=== PATIENT | male | born 1940 | race Caucasian/White ===

== ENCOUNTER 2023-07-16 07:52 | Day surgery (SDC) | payer MEDICARE, OTHER, SELFPAY ==
[2023-07-16] MEDS: TETRACAINE 0.5% OPHTH 1 DROP EYE-RIGHT ×2 (08:20→08:34)
--- NOTE | 2023-07-16 08:23 | SUR.PREOP ---
The eye drops brought by the patient (Ketorolac and Prednisolone) are examined and I have determined they are labeled by the patient's pharmacy for this patient as prescribed by the surgeon. The bottles are intact, recently obtained and appear to be correct.
[2023-07-16] MEDS: KETOROLAC OPHTH 0.5% 1 DROP EYE-RIGHT ×3 (08:33→08:42)
[2023-07-16] MEDS: SODIUM CHLORIDE 0.9 % (FLUSH) 10 ML SYRINGE IVF (08:45)
[2023-07-16 08:46] VITALS: BP 150/76; PULSE 67; RESP 16; TEMP 36.7; O2SAT 96; BMI 28.8
[2023-07-16] MEDS: BALANCED SALT IRRIG SOLN 15 ML EYE-RIGHT (09:24)
[2023-07-16] MEDS: TETRACAINE 0.5% OPHTH 2 DROP EYE-RIGHT (09:24)
--- NOTE | 2023-07-16 09:49 | P.ANES_ITS ---
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
[2023-07-16 09:50] VITALS: BP 140/70; PULSE 61; RESP 16; TEMP 36.7; O2SAT 99
--- NOTE | 2023-07-16 10:40 | W.ANESCHARGE ---
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
--- NOTE | 2023-07-16 12:59 | P.OPTPRC_ITS ---
Procedure Note Date of procedure: 07/16/23 Will [facility] bill your pro fee for this procedure?: Yes Procedure Description: SURGEON: Chantal Major MD PREOPERATIVE DIAGNOSIS: Nuclear sclerotic cataract, right eye. POSTOPERATIVE DIAGNOSIS: Nuclear sclerotic cataract, right eye. NAME OF OPERATION: Phacoemulsification of cataract with posterior chamber intraocular lens implantation in the right eye. ANESTHESIA: Topical. ESTIMATED BLOOD LOSS: Less than 2 cc. COMPLICATIONS: None. PATHOLOGY SPECIMEN: None. INDICATIONS: See consult note for details. The risks, benefits and alternatives of the procedure were explained to the patient, who elected to proceed and signed informed consent to do so. Of note, the patient was treated with atropine for 2 days preoperatively which released the posterior synechiae. The pupil was well dilated. Therefore, no pupilloplasty or synechiolysis was needed. PROCEDURE: The patient was brought to the pre-holding area where the right eye was identified as the operative eye. I placed my initials above this eye. The patient received eye drops consisting of 0.5% tetracaine, 1% tropicamide, 10% phenylephrine, and 0.5% ketorolac. The patient was then brought to the operating room where the right eye was again identified as the operative eye. The eye was prepped with Betadine and draped in the usual sterile ophthalmic fashion. A #15 super-sharp blade was used to create a paracentesis site. 1% non-preserved intracameral lidocaine was injected into the anterior chamber. Endocoat was injected into the anterior chamber. A 2.4 mm keratome was used to create a three-plane self-sealing incision 1 mm anterior to the temporal limbus. A cystotome was used to create an anterior capsular leaflet. The Utrata forceps were used to extend this to form a continuous curvilinear capsulorrhexis. Hydrod issection was performed. The cataract was removed with phacoemulsification using the [id number] technique. The irrigation and aspiration tip was used to remove the remaining cortex. Healon was injected into the capsular bag. An CATALINA ZCB00 intraocular lens of 19.5 diopters was injected into the capsular bag. The irrigation and aspiration tip was used to remove the remaining viscoelastic. Bal anced salt solution on a cannula was used to hydrate the wound, and the wound was found to be watertight. Miostat was injected into the anterior chamber. The pupil was noted to be round. DISPOSITION: The patient was taken to the recovery room and discharged to home in stable condition. The patient was instructed to call me or go to the emergency department with any sudden change, including dramatic loss of vision, severe pain in the eye or eyebrow region, nausea, or vomiting. The patient will follow up in the clinic tomorrow morning.
== END 2023-07-16 10:23 | disposition home or self-care (01) ==
PROVIDERS: PCP Family Medicine; Visit Provider Ophthalmology
PROC: (CPT 66984; principal; 2023-07-16 08:15)
DX: H25.11 Age-related nuclear cataract, right eye (principal)
CPT/HCPCS: 66984; 00142; 99100; A9270; J2250; J2405; J3010; V2632

== ENCOUNTER 2023-07-30 07:36 | Day surgery (SDC) | payer MEDICARE, OTHER, SELFPAY ==
[2023-07-30] MEDS: KETOROLAC OPHTH 0.5% 1 DROP EYE-LEFT ×3 (08:00→08:10)
[2023-07-30] MEDS: TETRACAINE 0.5% OPHTH 1 DROP EYE-LEFT ×2 (08:00→08:05)
[2023-07-30 08:04] VITALS: BP 158/84; PULSE 83; RESP 18; TEMP 36.2; O2SAT 97
[2023-07-30 08:13] VITALS: BMI 27.9
[2023-07-30] MEDS: SODIUM CHLORIDE 0.9 % (FLUSH) 10 ML SYRINGE IVF (08:16)
[2023-07-30] MEDS: TETRACAINE 0.5% OPHTH 2 DROP EYE-LEFT (09:27)
[2023-07-30] MEDS: BALANCED SALT IRRIG SOLN 15 ML EYE-LEFT (09:31)
--- NOTE | 2023-07-30 09:57 | P.ANES_ITS ---
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
[2023-07-30 10:00] VITALS: BP 153/77; PULSE 62; RESP 16; TEMP 36.3; O2SAT 96
--- NOTE | 2023-07-30 10:02 | W.PM.OPTPROC ---
Procedure Note Date of procedure: 07/30/23 Will [facility] bill your pro fee for this procedure?: Yes Procedure Description: SURGEON: Chantal Major MD PREOPERATIVE DIAGNOSIS: Nuclear sclerotic cataract, left eye. POSTOPERATIVE DIAGNOSIS: Nuclear sclerotic cataract, left eye. NAME OF OPERATION: Phacoemulsification of cataract with posterior chamber intraocular lens implantation in the left eye. ANESTHESIA: Topical. ESTIMATED BLOOD LOSS: Less than 2 cc. COMPLICATIONS: None. PATHOLOGY SPECIMEN: None. INDICATIONS: See consult note for details. The risks, benefits and alternatives of the procedure were explained to the patient, who elected to proceed and signed informed consent to do so. PROCEDURE: The patient was brought to the pre-holding area where the left eye was identified as the operative eye. I placed my initials above this eye. The patient received eye drops consisting of 0.5% tetracaine, 1% tropicamide, 10% phenylephrine, and 0.5% ketorolac. The patient was then brought to the operating room where the left eye was again identified as the operative eye. The eye was prepped with Betadine and draped in the usual sterile ophthalmic fashion. A #15 super-sharp blade was used to create a paracentesis site. 1% non-preserved intracameral lidocaine was injected into the anterior chamber. Endocoat was injected into the anterior chamber. A 2.4 mm keratome was used to create a three-plane self-sealing incision 1 mm anterior to the temporal limbus. A cystotome was used to create an anterior capsular leaflet. The Utrata forceps were used to extend this to form a continuous curvilinear capsulorrhexis. Hydrodissection was performed. The cataract was removed with phacoemulsification using the [id number] technique. The irrigation and aspiration tip was used to remove the remaining cortex. Healon was injected into the capsular bag. An CATALINA ZCB00 intraocular lens of 19.0 diopters was injected into the capsular bag. The irrigation and aspiration tip was used to remove the remaining viscoelastic. Balanced salt solution on a cannula was used to hydrate the wound, and the wound was found to be watertight. The pupil was noted to be round. DISPOSITION: The patient was taken to the recovery room and discharged to home in stable condition. The patient was instructed to call me or go to the emergency department with any sudden change, including dramatic loss of vision, severe pain in the eye or eyebrow region, nausea, or vomiting. The patient will follow up in the clinic tomorrow morning.
--- NOTE | 2023-07-30 10:09 | SUR.PREOP ---
The eye drops brought by the patient (Ketorolac and Prednisolone) are examined and I have determined they are labeled by the patient's pharmacy for this patient as prescribed by the surgeon. The bottles are intact, recently obtained and appear to be correct.brina
== END 2023-07-30 10:33 | disposition home or self-care (01) ==
LOC: OR 07:37
PROVIDERS: PCP Family Medicine; Visit Provider Ophthalmology
PROC: (CPT 66984; principal; 2023-07-30 08:15)
DX: H25.12 Age-related nuclear cataract, left eye (principal)
CPT/HCPCS: 66984; 00142; 99100; A9270; J2250; J3010; V2632

== ENCOUNTER 2024-03-05 08:25 | Emergency (ER) | payer MEDICARE, OTHER, SELFPAY ==
[2024-03-05] VITALS (22 sets, daily range): BP systolic 131–151; BP diastolic 64–81; PULSE 66–89; RESP 18; TEMP 36.7; O2SAT 93–99; BMI 27.3
--- NOTE | 2024-03-05 08:45 | ED.GENADULT ---
HPI - General Adult General Chief complaint: Weakness Stated complaint: Heart problems, feeling unwell Time Seen by Provider: 03/05/24 08:44 History of Present Illness HPI narrative: Pt complaints of feeling weak , legs cramping for the last three weeks, and loss of appetite. Reports loss of appetite. Was just seen in the hospital in [facility] on Friday for leg swelling. 83-year-old man presenting to the emergency department with concern of just not feeling well. Feels weak. 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 Was evaluated with ultrasound which was apparently negative. Lab work also. Been feeling really agitated and restless, uncomfortable at this meeting and noted by other attendees who took him to first-aid and then ultimately to the ER. Is not short of breath. Not having abdominal pain. After extensive interview here finally discovered that he has been having copious diarrhea over the last 2 days. No recent prior antibiotic use. He has not had a fever. Is little congested but sounds like that is somewhat chronic. Does have a history of sleep apnea and uses CPAP. 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 There is also something amiss with a heart valve but has not been replaced. They do say that his pacemaker battery is heading toward replacement. He denies a history of heart failure. Pacer is queried monthly. Continues to take Coumadin and digoxin and metoprolol. Denies being screen for COVID recently. He has not had a fever Reviewing records associated with this facility looks to be primarily seen for treatment for skin lesions including basal cell carcinoma and actinic keratoses. Otherwise cataract care/procedures. Related Data Home Medications ?Medication ?Instructions ?Recorded ?Confirmed digoxin 125 mcg (0.125 mg) tablet 125 mcg PO DAILY 05/19/23 03/05/24 metoprolol succinate 100 mg 150 mg PO BID 05/19/23 03/05/24 tablet,extended release 24 hr warfarin 7.5 mg tablet 7.5 mg PO 05/19/23 09/04/23 glucosamine sulfate 500 mg tablet 250 mg PO DAILY 03/05/24 03/05/24 (Glucosamine) vit C 250 mg-vit E 90 mg-zinc 40 1 tab PO BID 03/05/24 03/05/24 mg-copper 1 [id number] capsule (PreserVision AREDS-2) Previous Rx's ?Medication ?Instructions ?Recorded nirmatrelvir 300 mg (150 mg See Rx Instructions PO .COMPLEX #6 03/05/24 x2)-ritonavir 100 mg tablet,dose tabs pack (Paxlovid) Allergies Allergy/AdvReac Type Severity Reaction Status Date / Time diphenhydramine Allergy tachycardia Verified 03/05/24 08:37 [From Benadryl] morphine Allergy Verified 03/05/24 08:37 Review of Systems Status of ROS: Reports: 6 or more systems reviewed and unremarkable except as noted in History and below PFSH [facility] Medical History Presence of cardiac pacemaker ?Z95.0 - Presence of cardiac pacemaker (ICD-10) Mitral valve insufficiency ?I34.0 - Nonrheumatic mitral (valve) insufficiency (ICD-10) TIA (transient ischemic attack) ?G45.9 - Transient cerebral ischemic attack, unspecified (ICD-10) Ischemic stroke ?I63.9 - Cerebral infarction, unspecified (ICD-10) LISET on CPAP ?G47.33 - Obstructive sleep apnea (adult) (pediatric) (ICD-10) Atrial fibrillation ?I48.91 - Unspecified atrial fibrillation (ICD-10) Surgical History Hx of tonsillectomy ?Z90.89 - Acquired absence of other organs (ICD-10) History of open reduction and internal fixation (ORIF) procedure ?Z98.890 - Other specified postprocedural states (ICD-10) Social History Smoking Status: Never smoker Do you use any of these nicotine containing products: None How often do you have a drink containing alcohol: never How often do you have six or more drinks on one occasion: Never AUDIT-C Alcohol total score: 0 Non-prescribed substance use: denies use Caffeine: Yes Exam Narrative: Exam Narrative: Pleasant. NAD. Sounds congested in the nasopharynx without facial swelling erythema or tenderness. Oropharynx is WNL. Lungs are clear. Heart in irregularly irregular rhythm in a normal rate. I do not appreciate any murmur. Abdomen is soft and nontender with normal bowel sounds. No masses appreciated. Lower extremities with mild pitting bilateral edema. He is breathing easily. Does not appear to be in particular distress. Does appear little tired. Cranial nerves 2-12 intact Const: Vital Signs, click to edit/add: Vital Signs - 24 hr 03/05/24 08:30 03/05/24 08:49 03/05/24 09:00 Temperature 98.0 F Pulse Rate 88 79 Pulse Rate [Right Pulse Oximeter] 89 Respiratory Rate 18 Blood Pressure Blood Pressure [Ri ght Upper Arm] 150/64 H Pulse Oximetry 96 95 96 Oxygen Delivery Me thod Room Air 03/05/24 09:02 03/05/24 09:15 03/05/24 09:15 Temperature Pulse Rate 88 81 Pulse Rate [Right Pulse Oximeter] Respiratory Rate Blood Pressure 139/81 Blood Pressure [Ri ght Upper Arm] Pulse Oximetry 97 96 96 Oxygen Delivery Me thod 03/05/24 09:36 03/05/24 09:45 03/05/24 10:00 Temperature Pulse Rate 78 77 68 Pulse Rate [Right Pulse Oximeter] Respiratory Rate Blood Pressure Blood Pressure [Ri ght Upper Arm] Pulse Oximetry 95 96 98 Oxygen Delivery Me thod 03/05/24 10:02 03/05/24 10:15 03/05/24 10:30 Temperature Pulse Rate 70 66 Pulse Rate [Right Pulse Oximeter] Respiratory Rate Blood Pressure 131/73 Blood Pressure [Ri ght Upper Arm] Pulse Oximetry 98 94 Oxygen Delivery Me thod 03/05/24 10:32 Temperature Pulse Rate 66 Pulse Rate [Right Pulse Oximeter] Respiratory Rate Blood Pressure 140/68 H Blood Pressure [Ri ght Upper Arm] Pulse Oximetry 94 Oxygen Delivery Me thod Documenting provider has reviewed patient's vital signs: yes Course Vital Signs Vital signs: Initial Vital Signs Temperature 98.0 F 03/05/24 08:30 Temperature Source Temporal Artery Scan 03/05/24 08:30 Pulse Rate 89 03/05/24 08:30 Pulse Rhythm Regular 03/05/24 08:30 Respiratory Rate 18 03/05/24 08:30 Blood Pressure 150/64 H 03/05/24 08:30 Blood Pressure Mean 92 03/05/24 08:30 Blood Pressure Position Sitting 03/05/24 08:30 Pulse Oximetry 96 03/05/24 08:30 Oxygen Delivery Method Room Air 03/05/24 08:30 Vital Signs Temperature 98.0 F 03/05/24 08:30 Pulse Rate 89 03/05/24 08:30 Respiratory Rate 18 03/05/24 08:30 Blood Pressure 150/64 H 03/05/24 08:30 Pulse Oximetry 96 03/05/24 08:30 Oxygen Delivery Method Room Air 03/05/24 08:30 Temperature 98.0 F 03/05/24 08:30 Pulse Rate 73 03/05/24 12:02 Respiratory Rate 18 03/05/24 08:30 Blood Pressure 146/80 H 03/05/24 12:02 Pulse Oximetry 95 03/05/24 12:02 Oxygen Delivery Method Room Air 03/05/24 08:30 Medications Administered Medications: Discontinued Medications Generic Name Dose Route Start Last Admin Trade Name Freq PRN Reason Stop Dose Admin Sodium Chloride 1,000 mls @ 1,000 mls/hr 03/05/24 09:15 03/05/24 10:41 0.9 % Sodium Chloride 1000 Ml IV 03/05/24 10:14 Infused .Q1H ONE Infusion Medical Decision Making MDM Narrative Medical decision making narrative: Will continue to monitor on alarm security or surveillance monitor. Initial EKG reviewed by me shows would does appear to be atrial fibrillation rate of 87. I am not seeing pacer spikes probably had and evolved whatever illness is contributing to diarrhea when he was evaluated 2 days ago. I would screen for COVID. Will hydrate. See if I can get a little more information on his cardiac status. Unsure whether he is chronically in atrial fibrillation or not. This could be contributing to his malaise. Differential also includes anemia, vitamin deficiencies, urinary tract infection Initiated on L of normal saline. Labs are overall reassuring of though did test positive for COVID ProBNP is elevated as well. Chest x-ray by my read appeared to show some interstitial edema not inconsistent with COVID diagnosis. Weakness Comparison: None available. Technique: Single AP view chest Findings: There is hyperinflation and chronic interstitial change. Mildly increased interstitial markings likely representing minimal pulmonary vascular congestion. The cardiac silhouette is mildly with a dual-chamber pacer. The bony thorax is grossly intact. Impression: Mildly increased interstitial markings likely representing mild pulmonary vascular congestion. Stable and overall improved during time in the emergency department. Did do medication check for potential reactions with Paxlovid. Renal function is adequate. See patient discharge plan for further discussion Medical Records Medical records reviewed: Yes I reviewed the patient's medical records Lab Data Lab results reviewed: Yes I reviewed the patient's lab results Labs: Lab Results 03/05/24 03/05/24 Range/Units 09:35 10:40 WBC 4.92 (4.50-11.00) K/uL RBC 4.26 L (4.30-5.90) m/uL Hgb 13.0 L (13.5-17.5) gm/dL Hct 40.8 (37.0-53.0) % MCV 96 (80-100) fL MCH 31 (26-34) pg MCHC 32 (32-36) gm/dL RDW Coeff of Kim 13.1 (11.5-15.5) % Plt Count 190 (140-440) K/uL Neut % (Auto) 54.6 (42.0-72.0) % Lymph % (Auto) 21.7 (20-44) % [place] % (Auto) 21.5 H (0.0-11.0) % Eos % (Auto) 0.8 (0.0-7.0) % Baso % (Auto) 0.8 (0.0-3.0) % Neut # (Auto) 2.68 (1.7-7.0) K/uL Lymph # (Auto) 1.07 (0.90-2.90) K/uL [place] # (Auto) 1.10 H (0.00-0.90) K/UL Eos # (Auto) 0.04 (0.00-0.50) K/uL Baso # (Auto) 0.04 (0.00-0.30) K/uL Abs Immat Gran (auto) 0.03 (0.00-0.30) K/uL Imm/Tot Granulo (auto) 0.6 % INR 1.97 H (0.91-1.10) Sodium 135 (135-149) mmol/L Potassium 3.9 (3.6-5.1) mmol/L Chloride 104 (96-114) mmol/L Carbon Dioxide 25 (20-32) mmol/L Anion Gap 6 L (7-15) mEq/L BUN 26 (7-30) mg/dL Creatinine 1.0 (0.5-1.5) mg/dL Estimated Creat Clear 56.78 Estimated GFR 74 ml/min Glucose 118 H (60-115) mg/dL Calcium 8.5 (8.4-10.6) mg/dL Magnesium 2.1 (1.5-2.6) mg/dL Total Bilirubin 0.8 (0.1-1.5) mg/dL Direct Bilirubin 0.2 (0.0-0.5) mg/dL AST 52 H (12-35) U/L ALT 18 (4-50) U/L Alkaline Phosphatase 54 (40-150) U/L C-Reactive Protein 6.0 H (0.5-1.0) mg/dL NT-Pro-B Natriuret Pep 2660 pg/mL Total Protein 6.5 (6.0-8.3) g/dL Albumin 3.8 (3.3-5.0) g/dL Urine Color Yellow (Yellow) Urine Appearance Clear (Clear) Urine pH 6.0 (5.0-8.5) Ur Specific [place] 1.025 (1.000-1.030) Urine Protein Negative (Negative) Urine Glucose (UA) Negative (Negative) Urine Ketones Negative (Negative) Urine Blood Negative (Negative) Urine Nitrite Negative (Negative) Urine Bilirubin Negative (Negative) Urine Urobilinogen 0.2 (0.2-1.0) Ur Leukocyte Esterase Negative (Negative) Urine RBC 2-5 A (0-2) Urine WBC 0-2 (0-5) Ur Squamous Epith Cells None (None-Few) Urine Bacteria None (None) SARS-CoV-2 (PCR) POSITIVE SARS-CoV-2 A (Negative) Influenza Type A (PCR) Negative PCR FLU A (Negative) Influenza Type B (PCR) Negative PCR FLU B (Negative) RSV (PCR) Negative PCR RSV (Negative) Discharge Plan Discharge Clinical Impression: COVID-19, Diarrhea Patient Disposition: Home w/ Parent or Adult Condition: Stable Additional Instructions: Do focus on hydration. You might benefit from some electrolyte drink. Take your digoxin every other day starting tomorrow over the next 5 days. Check your INR in 5 days. Return for persistent and increasing shortness of breath, inability to maintain hydration status like diarrhea getting really out of control, too much weakness, unusual somnolence. You need to quarantine for 10 days from onset of symptoms. Prescriptions: New Paxlovid 300 mg (150 mg x 2)-100 mg tablets,dose pack See Rx Instructions PO .COMPLEX Qty: 6 0RF Rx Instructions: take TWO 150 mg tablets of nirmatrelvir with ONE 100 mg tablet of ritonavir twice daily for 5 days No Action warfarin 7.5 mg tablet 7.5 mg PO metoprolol succinate 100 mg tablet extended release 24 hr 150 mg PO BID digoxin 125 mcg (0.125 mg) tablet 125 mcg PO DAILY PreserVision AREDS-2 250-90-40-1 mg capsule 1 tab PO BID glucosamine sulfate [Glucosamine] 500 mg tablet 250 mg PO DAILY Rx Instructions: administer with a meal Follow Up/Referrals: Rony Khan MD [Staff Physician] - Stand Alone Forms: [employer] Info Instructions
--- NOTE | 2024-03-05 09:16 | CRLHL7_ITS ---
For Patients: As a result of the Century Cures Act, medical imaging exams and procedure reports are released immediately into your electronic medical record. You may view this report before your referring provider. If you have questions, please contact your health care provider. Indication: Weakness Comparison: None available. Technique: Single AP view chest Findings: There is hyperinflation and chronic interstitial change. Mildly increased interstitial markings likely representing minimal pulmonary vascular congestion. The cardiac silhouette is mildly with a dual-chamber pacer. The bony thorax is grossly intact. Impression: Mildly increased interstitial markings likely representing mild pulmonary vascular congestion. Dictated by Nathan Tillman MD @ 03/05/2024 9:48:06 AM (Electronically Signed)
--- OUTSIDE RECORDS SUMMARY | 2024-03-05 09:32 | XMS_ITS | Clinical Summary ---
Author Organization [facility] Address [place], [place] [address] Care Team Providers Care 4 H Youth Development Specialist Name Role Phone Rj Lizarraga DO Primary Care Provider [phone] Allergies Active Allergy Reactions Criticality Noted Date Comments Diphenhydramine Tachycardia Low 11/05/2006 Morphine Other - Describe In Comment Field Medications Medication Sig Dispensed Refills Start Date End Date Status multivitamin (MVI) tablet Take 1 tablet by mouth once daily. 0 10/03/2011 Active glucosamine-chond roitin, 500-400 mg, (COSAMIN DS 500/400) 500-400 mg cap Take 1 capsule by mouth once daily. 0 03/03/2013 Active ascorbic acid (VITAMIN C) 1,000 mg tablet One tab twice daily. 0 08/07/2015 Active CPAP DME Order 01/25/2020 Active durable medical equipment (DME)Indications: Hypertension, unspecified type Electronic blood pressure cuff 1 Each 10/30/2021 Active metoprolol succinate (TOPROL XL) 100 mg Sustained-Release tabletIndications :Atrial fibrillation, chronic (HC) Take 1.5 Tablets (150 mg) by mouth two times daily. 135 Tablet 3 05/09/2023 Active sb-spb-LH-vit D-iqbosn-ssedfsu (PreserVision AREDS 2 Plus MV) 200 mcg-15 mcg- 5 mg-1 mg cap Take by mouth. 0 07/08/2023 Active atropine (ISOPTO ATROPINE) 1 % ophthalmic solution INSTILL ONE DROP INTO RIGHT EYE TWICE DAILY BEGINNING 2 DAYS BEFORE SURGERY, THEN STOP AFTER SURGERY.* 07/09/2023 Active ketorolac 0.5 % ophthalmic (ACULAR) solution place 1 drop into operative eye four times daily beginning after surgery.* 07/08/2023 Active ofloxacin 0.3 % ophthalmic (OCUFLOX) 0.3 % ophthalmic solution place 1 drop into operative eye four times daily beginning friday before surgery.* 07/08/2023 Active prednisoLONE acetate 1% ophthalmic (ECONOPRED PLUS, PRED FORTE, OMNIPRED) suspension place 1 drop into operative eye(s) four times daily beginning after surgery.* 07/08/2023 Active digoxin (LANOXIN) 125 mcg (0.125 mg) tabletIndications :Atrial fibrillation, chronic (HC) TAKE ONE TABLET BY MOUTH ONE TIME DAILY 90 Tablet 12/24/2023 Active warfarin (COUMADIN) 7.5 mg tabletIndications :Permanent atrial fibrillation (HC),Anticoagulat ion monitoring, INR range 2-3,Atrial fibrillation, chronic (HC) Take by mouth 3.75 mg (7.5 mg x 0.5) every Mon, Wed, Fri; 7.5 mg (7.5 mg x 1) all other days in the evening OR as directed 71 Tablet 02/05/2024 Active warfarin (COUMADIN) 7.5 mg tabletIndications :Permanent atrial fibrillation (HC),Anticoagulat ion monitoring, INR range 2-3,Atrial fibrillation, chronic (HC) Take by mouth 3.75 mg (7.5 mg x 0.5) every Mon, Wed, Fri; 7.5 mg (7.5 mg x 1) all other days or as directed 72 Tablet 1 08/08/2023 4 Discontinued Active Problems Problem Noted Date Diagnosed Date White coat syndrome without hypertension 023 Presence of cardiac pacemaker 10/04/2021 Personal history of transien t ischemic attack (TIA), and cerebral infarction without residual deficits 10/04/2021 Mitral valve insufficiency 10/04/2021 Ischemic stroke 09/28/2020 Overview: 2010 LISET on CPAP 09/22/2015 Anticoagulation monitoring, INR range 2-3 2013 Overview: Every 6 week INR's okay per Dr. Yeboah 07/29/2016. AND- ok for every 6 week INR's if stable. 05/21/2017. Nga Gauthier RN .................... 05/21/2017 4:48 PM Personal history of colonic polyps 05/06/2013 Overview: Colonoscopy 04/2013 normal repeat in 5 years Colonoscopy 11/2018 polyp, repeat in 5 years Permanent atrial fibrillation 11/05/2006 Overview: Managed with pacemaker, Digoxin, toprol XL, and warfarin 7.5 mg. Encounters Date Type Department Care Team Description 03/05/[address] [facility] [place] [address] Rj Lizarraga DO Questions 02/05/2024 Refill [facility] [place] [address] Rj Lizarraga DO Refill Request (Warfarin) 01/28/2024 9:00 AM CDT Orders Only [address] [place] [address] [facility] 01/27/2024 9:15 AM CDT Orders Only [address] [place] [address] [facility] 01/27/2024 Anticoagulation (warfarin) [address] [place] [address] 1, [facility]ticoagulation 01/27/2024 Travel 12/30/2023 9:15 AM CDT Orders Only [address] [place] [address] [facility] 12/30/2023 Anticoagulation (warfarin) [address] [place] [address] 1, [facility] Anticoagulation 12/30/2023 Travel 12/29/2023 Telephone [facility] [place] [address] Rj Lizarraga DO Anticoagulation (Annual re-enrollment ) 12/23/[address] [place] [address] Rj Lizarraga DO Refill Request (Digoxin) from Last 3 Months Immunizations Name Administration Dates Next Due COVID-19 vaccine (Pfizer-Bio NTech 30mcg/0.3mL) 12YO+ BIVALENT PF, MDV 02/06/2023 COVID-19 vaccine (Pfizer-Bio NTech 30mcg/0.3mL) PF, MDV 01/29/2022,06/07/2021,10/24/2020,10/03 Hepatitis A (Adult) 04/21/2009,03/31/2008 Influenza A (H1N1), Inactiva ilene (Age >=3 Years) 06/08/2009 Influenza, IIV3 (Age 6-35 mos) 05/04/2012,2010,05/22/2010 Influenza, IIV3 (Age >=3 years) 05/04/2012,06/03 Pneumococcal Poly,23-Valent (Pneumovax) 06/06/2005,08/06/1999 Pneumococcal conj 13-Valent (Prevnar 13) 08/19/2016 RSV, Recombinant ADJ Reconst ituted (Arexvy 120MCG/0.5mL) 07/09/2023 Td (Age >=7 Years) 08/11/1995 Td, Preservative Free (age >= 7 Years) 8 Tdap 05/04/2012 Family History Medical History Relation Name Comments Heart Disease Brother cadiac valve r eplaced Cancer Father pancreatic Other Father pancreatic ca Other Mother renal failure Genetic Other cancer~diabetes ~cataract-mo~detached retina-mo Relation Name Status Comments Brother Father Mother Other Social History Tobacco Use Types Packs/Day Years Used Date Smoking Tobacco: Never Smokeless Tobacco: Never Tobacco Cessation:Counseling Given: Yes Alcohol Use Standard Drinks/Week Comments No 0 (1 standard drink = 0.6 oz pur e alcohol) PHQ-2 Answer Date Recorded PHQ-2 TOTAL SCORE 0 02/06/2023 Social Connections Answer Date Recorded Frequency of Communication with Friends and Fami ly Not on file 07/25/2023 Financial Resource Strain Answer Date R ecorded Difficulty of Paying Living Expenses 3 07/23/2022 Difficulty of Paying Living Expenses Not on file 07/23/2022 Food Insecurity Answer Date Recorded Worried About Running Out of Food in the Last Ye ar 1 07/23/2022 Transportation Needs Answer Date Record ed Lack of Transportation (Medical) 1 07/23/2022 Housing Stability Answer Date Recorded Unable to Pay for Housing in the Last Year 1 07/23/2022 Sex and Gender Information Value Date Recorded Sex Assigned at Not on file Gender Identity Not on file Sexual Orientation Not on file Obstetrics History Last Filed Vital Signs Vital Sign Reading Time Taken Comments Blood Pressure 166/72 07/15/2023 1:54 PM FOIL STAMP OPERATOR rec heck Pulse 80 07/15/2023 1:51 PM FOIL STAMP OPERATOR Temperature 36.6 ??C (97.8 ??F) 08/08/2020 10:[address] Respiratory Rate 20 01/12/2021 12:56 PM CDT Oxygen Saturation 100% 07/15/2023 1:51 PM FOIL STAMP OPERATOR Inhaled Oxygen Concentration - - Weight 91.3 kg (201 lb 3.2 oz) 07/15/2023 1:51 P M FOIL STAMP OPERATOR Height 177.8 cm (5' 10) 02/06/2023 9:09 AM CDT Body Mass Index 28.87 02/06/2023 9:09 AM CDT Plan of Treatment Upcoming Encounters Date Type Department Care Team (Late st Contact Info) Description 03/09/2024 9:15 AM CDT Orders Only [facility] [address] [place] [address] [facility] Maintenance Due Date Last Done Comments Zoster (shingles) series for age 50+ (1 of 2) 1989 Tetanus booster 05/04/2022 05/04/2012, 03/12, 08/11/1995 COVID-19 vaccine series ( season) 2023 06/10/2023, 02/06/2023, 06/18/2022, Additional history exists BMI (ht and wt on same day) for age 18+ 02/07/2024 02/06/2023, 02/05/2022, 12/29/2020, Additional history exists Depression screening for age 12+ 02/07/2024 02/06/2023, 02/06/2023, 02/06/2022, Additional history exists Medicare Wellness for age 65+ 02/07/2024, 02/05/2022, 12/29/2020, Additional history exists Influenza for age 65+ 04/11/2024 05/04/2012 , 06/03/2011, 06/08/2009 Tdap Completed 05/04/2012 Pneumococcal series for age 65+ Completed 08/19/2016, 06/06/2005, 08/06/1999 Procedures Procedure Name Priority Date/Time Associated Diagnosis Comments DIGOXIN Routine 01/28/2024 9:21 AM CDT Medication management INR,POCT Routine 01/27/2024 8:48 AM CDT Permanent atrial fibrillation (HC) Anticoagulation monitoring, INR range 2-3 INR,POCT Routine 12/30/2023 8:59 AM CDT Permanent atrial fibrillation (HC) Anticoagulation monitoring, INR range 2-3 from Last 3 Months Results * DIGOXIN (01/28/2024 9:21 AM CDT) DIGOXIN 1.0 0.8 - 2.0 ng/mL 01/28/2024 6:52 PM CDT [facility] DATE OF LAST DOSE 01/27/2024 01/28/2024 6:52 PM CDT [facility] TIME OF LAST DOSE 6:00 PM 01/28/2024 6:52 PM CDT [facility] Blood BLOOD SPECIMEN / Unknown Venipuncture / Unknown 01/28/2024 9:21 AM CDT 01/28/2024 9:21 AM CDT Rj Lizarraga DO CHEMISTRY [facility] [address] [place] [place] [address], * (ABNORMAL) INR,POCT (01/27/2024 8:48 AM CDT) Only the most recent of2 resultswithin the time period is included. INR 2.1(H) <1.3 01/27/2024 8:51 AM CDT [facility] Blood BLOOD SPECIMEN / Unknown 01/27/2024 8:48 AM CDT 01/27/2024 8:51 AM CDT Narrative [facility] - 01/27/2024 8:51 AM CDT ?Therapeutic Range 2.0-3.0 for most anticoagulated patients 2.5-3.5 or 4.0 for high risk patients Rj Lizarraga DO LABORATORY [facility] [address] [place] [address], from Last 3 Months Care Teams 4 H Youth Development Specialist Relationship Specialty Start Date End Date Rj Lizarraga DO [address] [place] [address] PCP - General Family Practice 10/16/20
[2024-03-05 09:47] LABS: Basophils Absolute Auto 0.04 K/uL (0.00-0.30); Basophils Percent Auto 0.8 % (0.0-3.0); Eosinophils Absolute Auto 0.04 K/uL (0.00-0.50); Eosinophils Percent Auto 0.8 % (0.0-7.0); Hematocrit 40.8 % (37.0-53.0); Immature Granulocytes Abs Auto 0.03 K/uL (0.00-0.30); Immature Granulocytes Pct Auto 0.6 %; Lymphocytes Absolute Auto 1.07 K/uL (0.90-2.90); Lymphocytes Percent Auto 21.7 % (20-44); Mean Corpuscular HGB Conc 32 gm/dL (32-36); Mean Corpuscular Hemoglobin 31 pg (26-34); Mean Corpuscular Volume 96 fL (80-100); Monocytes Percent Auto 21.5 % (0.0-11.0); Neutrophils Absolute Auto 2.68 K/uL (1.7-7.0); Neutrophils Percent Auto 54.6 % (42.0-72.0); Platelet Count* 190 K/uL (140-440); RDW Coefficient of Variation % 13.1 % (11.5-15.5); Red Blood Count 4.26 m/uL (4.30-5.90); White Blood Count* 4.92 K/uL (4.50-11.00)
[2024-03-05] MEDS: 0.9 % SODIUM CHLORIDE 1000 ml 1,000 ML IV (09:47)
[2024-03-05 09:52] LABS: Slide Review Reflex No
[2024-03-05 10:02] LABS: Albumin* 3.8 g/dL (3.3-5.0); Chloride* 104 mmol/L (96-114)
[2024-03-05 10:03] LABS: Potassium* 3.9 mmol/L (3.6-5.1); Sodium* 135 mmol/L (135-149)
[2024-03-05 10:06] LABS: Alanine Aminotransferase* 18 U/L (4-50); Alkaline Phosphatase* 54 U/L (40-150); Anion Gap 6 mEq/L (7-15); Aspartate Amino Transferase* 52 U/L (12-35); Bilirubin Direct* 0.2 mg/dL (0.0-0.5); Bilirubin Total* 0.8 mg/dL (0.1-1.5); Blood Urea Nitrogen* 26 mg/dL (7-30); Calcium* 8.5 mg/dL (8.4-10.6); Carbon Dioxide* 25 mmol/L (20-32); Glucose* 118 mg/dL (60-115); Magnesium* 2.1 mg/dL (1.5-2.6); Total Protein* 6.5 g/dL (6.0-8.3)
[2024-03-05 10:07] LABS: INR 1.97 (0.91-1.10); Prothrombin Time 23.8 Seconds
[2024-03-05 10:15] LABS: NT Pro B Type NatriureticPept* 2660 pg/mL
[2024-03-05 10:22] LABS: Est. Creatinine Clearance* 56.78; Estimated Glomerular Filt Rate 74 ml/min
[2024-03-05 10:50] LABS: Appearance Urine Clear (Clear); Bilirubin Urine Negative (Negative); Blood Urine Negative (Negative); Color Urine Yellow (Yellow); Glucose Urine Negative (Negative); Ketones Urine Negative (Negative); Leukocyte Esterase Urine Negative (Negative); Nitrite Urine Negative (Negative); Protein Urine Negative (Negative); Specific Gravity Urine 1.025 (1.000-1.030); Urobilinogen Urine 0.2 (0.2-1.0)
[2024-03-05 10:54] LABS: PCR FLU A Negative PCR FLU A (Negative); PCR FLU B Negative PCR FLU B (Negative); PCR RSV Negative PCR RSV (Negative); SARS PCR* POSITIVE SARS-CoV-2 (Negative)
[2024-03-05 10:58] LABS: WBC Urine 0-2 (0-5)
== END 2024-03-05 12:18 | disposition home or self-care (01) ==
PROVIDERS: Emergency Provider Family Medicine; PCP Family Medicine
DX: U07.1 COVID-19 (principal); R19.7 Diarrhea, unspecified
CPT/HCPCS: 36415; 71045; 80048; 80076; 81001; 83735; 83880; 85025; 85610; 86140; 87631; 93005; 94761; 96360; 99284; 99285; J7030

== ENCOUNTER 2024-11-24 09:00 | Outpatient (CLI) | payer MEDICARE, OTHER, SELFPAY ==
--- NOTE | 2024-11-24 10:27 | P.ANES_ITS ---
Anesthesia Charges Start Date/Time Anesthesia Start Date: 11/24/24 Anesthesia Start Time: 10:03 Stop Date/Time Anesthesia Stop Date: 11/24/24 Anesthesia Stop Time: 10:26 Summary Extremes of Age - Over 70 or under 1: PLAYER PIANO TECHNICIAN Coding CPT Codes CPT Codes: ANES LWR INTST NDSC NOS - 80747 ([id number]) P3 - PATIENT W/SEVERE SYS DISEASE, QZ - PLAYER PIANO TECHNICIAN SVC W/O FISH ICER BY Additional Codes: Summary - Extremes of Age - Over 70 or under 1: PLAYER PIANO TECHNICIAN ([id number])
--- NOTE | 2024-11-24 10:27 | W.ANESCHARGE ---
Anesthesia Charges Start Date/Time Anesthesia Start Date: 11/24/24 Anesthesia Start Time: 10:03 Stop Date/Time Anesthesia Stop Date: 11/24/24 Anesthesia Stop Time: 10:26 Summary Extremes of Age - Over 70 or under 1: CHILD CARE GIVER Coding CPT Codes CPT Codes: ANES LWR INTST NDSC NOS - 26553 ([id number]) P3 - PATIENT W/SEVERE SYS DISEASE, QZ - CHILD CARE GIVER SVC W/O EXECUTIVE PRODUCER PROMOS BY Additional Codes: Summary - Extremes of Age - Over 70 or under 1: CHILD CARE GIVER ([id number])
== END 2024-11-24 09:01 | disposition home or self-care (01) ==
LOC: OP CLINIC 09:02
PROVIDERS: PCP Family Medicine; Visit Provider Internal Medicine Gastroenterology
DX: Z12.11 Encounter for screening for malignant neoplasm of colon (principal); D12.2 Benign neoplasm of ascending colon; Z86.0100 Personal history of colon polyps, unspecified
CPT/HCPCS: 00811; 45380; 45385; 88305; 99100; J2704

== ENCOUNTER 2025-07-04 14:33 | Outpatient (CLI) | payer MEDICARE, OTHER, SELFPAY | END 2025-07-04 14:34 | disposition home or self-care (01) | LOC: AMB 07-14 18:34 | PROVIDERS: PCP Family Medicine; Visit Provider Family Medicine | DX: R07.89 Other chest pain (principal) | CPT/HCPCS: A0425; A0427 ==

== ENCOUNTER 2025-07-04 15:02 | Observation (INO) | payer MEDICARE, OTHER, SELFPAY ==
[2025-07-04] VITALS (33 sets, daily range): BP systolic 104–143; BP diastolic 61–99; PULSE 74–86; RESP 7–26; TEMP 36.4–36.8; O2SAT 94–99; BMI 29.6; BMI 29.5
--- NOTE | 2025-07-04 15:38 | CRLHL7_ITS ---
For Patients: As a result of the Cures Act, medical imaging exams and procedure reports are released immediately into your electronic medical record. You may view this report before your referring provider. If you have questions, please contact your health care provider. INDICATION: Chest pain, not otherwise described. COMPARISON: None available. TECHNIQUE: PA and lateral views of the chest. FINDINGS: Medical Devices: In-situ right-sided dual lead cardiac conduction device. Lung Volumes: Adequate inspiration. No significant atelectasis. Lungs: Clear lungs. Pleura and Pleural spaces: No significant pleural effusion. No pneumothorax. Mediastinum: Unchanged cardiomegaly. Bony Thorax and Soft Tissues: No significant interval findings. IMPRESSION: No findings to explain the clinical history of chest pain not otherwise specified. Incidental findings described in the body of the report. Dictated by Rylan Hernandes MD @ 07/04/2025 4:20:12 PM (Electronically Signed)
[2025-07-04 15:48] LABS: Troponin, Point-of-Care* 0.00 ng/ml (0.01-0.04)
[2025-07-04 15:50] LABS: Lactate* 1.3 mmol/L (0.5-1.9)
[2025-07-04 15:51] LABS: Hematocrit* 39.0 % (37.0-53.0); Hemoglobin* 12.6 gm/dL (13.5-17.5); Immature Granulocytes Abs Auto 0.04 K/uL (0.00-0.30); Immature Granulocytes Pct Auto 0.4 %; Lymphocytes Absolute Auto 2.48 K/uL (0.90-2.90); Mean Corpuscular HGB Conc 32 gm/dL (32-36); Mean Corpuscular Hemoglobin 31 pg (26-34); Mean Corpuscular Volume 97 fL (80-100); RDW Coefficient of Variation % 13.0 % (11.5-15.5); Red Blood Count* 4.04 m/uL (4.30-5.90); White Blood Count* 10.32 K/uL (4.50-11.00)
[2025-07-04] MEDS: ASPIRIN 81 MG TAB.CHEW 324 MG PO (16:03)
[2025-07-04 16:09] LABS: INR 2.32 (0.91-1.10); Prothrombin Time 26.6 Seconds
--- NOTE | 2025-07-04 16:21 | ED.GENADULT ---
HPI - General Adult General Chief complaint: Chest Pain Stated complaint: Chest pain Time Seen by Provider: 07/04/25 15:26 Source: patient Mode of arrival: ambulatory Limitations: no limitations History of Present Illness HPI narrative: 85-year-old male presenting today with chest pain. Pain started when he woke up around 4:00 a.m. in the morning, approximately 11 hours ago. States that the pain is been constant, sits right on his sternum-he describes it as a pressure. He does not feel short of breath, dizzy or lightheaded. He denies diaphoresis. He states that his appetite has been normal today. He states that taking deep breaths makes the discomfort worse. Nothing seems to make it better. The patient did receive sublingual nitro in the ambulance which she states took his pain from about a 7 to a 3. He denies any history of coronary artery disease. He does have history of mitral valve insufficiency and atrial fibrillation on anticoagulation therapy. He does have a cardiac pacemaker in place. He denies any recent illness, no coughing. Denies fevers or chills. Related Data Home Medications ?Medication ?Instructions ?Recorded ?Confirmed digoxin 125 mcg (0.125 mg) tablet 125 mcg PO DAILY 05/19/23 07/04/25 metoprolol succinate 100 mg 150 mg PO BID 05/19/23 07/04/25 tablet,extended release 24 hr warfarin 7.5 mg tablet 7.5 mg PO 05/19/23 07/04/25 glucosamine sulfate 500 mg tablet 250 mg PO DAILY 03/05/24 07/04/25 (Glucosamine) vit C 250 mg-vit E 90 mg-zinc 40 1 tab PO BID 03/05/24 07/04/25 mg-copper 1 [id number] capsule (PreserVision AREDS-2) Previous Rx's ?Medication ?Instructions ?Recorded mupirocin 2 % topical ointment 1 applic topical TID 5 days #22 03/12/25 grams Allergies Allergy/AdvReac Type Severity Reaction Status Date / Time morphine Allergy Mild Urination Verified 07/04/25 14:27 Difficulties diphenhydramine (From Allergy tachycardia Verified 07/04/25 14:27 Benadryl) Review of Systems Status of ROS: Reports: 10 or more systems reviewed and unremarkable except as noted in History and below [facility] Medical History Chest pain ?R07.9 - Chest pain, unspecified (ICD-10) COVID-19 (03/05/24) ?U07.1 - COVID-19 (ICD-10) History of basal cell carcinoma (BCC) ?Z85.828 - Personal history of other malignant neoplasm of skin (ICD-10) TIA (transient ischemic attack) ?G45.9 - Transient cerebral ischemic attack, unspecified (ICD-10) Ischemic stroke (2010) ?I63.9 - Cerebral infarction, unspecified (ICD-10) Surgical History History of cataract surgery ?Z98.49 - Cataract extraction status, unspecified eye (ICD-10) History of lipoma ?Z86.018 - Personal history of other benign neoplasm (ICD-10) Hx of tonsillectomy ?Z90.89 - Acquired absence of other organs (ICD-10) History of open reduction and internal fixation (ORIF) procedure ?Z98.890 - Other specified postprocedural states (ICD-10) Social History What is your current living situation?: I presently have a place to live Problems where you live: no known problems In the past 12 months, utilities in danger of being shut off: no In past 12 months, lack of transportation kept you from medical appts, meetings, work, or getting things needed for daily living: no In the past 12 mos, have been you worried that your food would run out before you had money to buy more?: never true In the past 12 mos, the food you bought just didn't last and you didn't have money to buy more?: never true Smoking Status: Never smoker Do you use any of these nicotine containing products: None How often do you have a drink containing alcohol: never How often do you have six or more drinks on one occasion: Never AUDIT-C Alcohol total score: 0 Non-prescribed substance use: denies use Caffeine: Yes How often does anyone, including family, friends and others, physically hurt you: never How often does anyone, including family, friends and others, insult or talk down to you: never How often does anyone, including family, friends and others, threaten you with harm: never How often does anyone, including family, friends and others, scream or curse at you: never Exam Narrative: Exam Narrative: Well-nourished well-developed patient in no acute distress. Alert and oriented. Answers questions appropriately. Mood and affect are appropriate. Thoughts are goal oriented and rational. No tangential or magical thinking noted. Patient speaks in full sentences without needing to catch his breath. HEENT: Normocephalic atraumatic. Pupils are equally round reactive to light. Extraocular muscles are intact. Conjunctivae are moist without any icterus noted. Moist mucous membranes. Cardiovascular: Heart is regular rate and rhythm S1 and S2 are present without any obvious murmurs. Lungs: Clear to auscultation bilaterally no wheezes rhonchi or rales are appreciated. Patient takes deep breaths without any discomfort. I cannot reproduce his pain with palpation. Abdomen: Soft and nontender nondistended with normal bowel sounds. Extremities: Bilateral lower extremities show 1+ pitting edema. Skin: Well perfused without any obvious rashes. Const: Vital Signs, click to edit/add: Vital Signs - 24 hr 07/04/25 15:15 07/04/25 15:17 07/04/25 15:20 Temperature 98.3 F Pulse Rate 74 Pulse Rate [Pulse Oximeter] 84 Respiratory Rate 16 11 L 22 Blood Pressure 118/78 Blood Pressure [Le ft Upper Arm] 104/64 Pulse Oximetry 95 95 Oxygen Delivery Me thod Room Air 07/04/25 15:30 07/04/25 15:31 07/04/25 15:45 Temperature Pulse Rate 78 75 Pulse Rate [Pulse Oximeter] Respiratory Rate 19 12 9 L Blood Pressure 117/71 Blood Pressure [Le ft Upper Arm] Pulse Oximetry 99 99 97 Oxygen Delivery Me thod 07/04/25 16:01 07/04/25 16:02 07/04/25 16:15 Temperature Pulse Rate Pulse Rate [Pulse Oximeter] Respiratory Rate 25 H 12 17 Blood Pressure 123/83 Blood Pressure [Le ft Upper Arm] Pulse Oximetry Oxygen Delivery Me thod 07/04/25 16:30 07/04/25 16:31 07/04/25 16:45 Temperature Pulse Rate Pulse Rate [Pulse Oximeter] Respiratory Rate 10 L 10 L 13 Blood Pressure 124/82 Blood Pressure [Le ft Upper Arm] Pulse Oximetry Oxygen Delivery Me thod 07/04/25 17:00 07/04/25 17:01 07/04/25 17:15 Temperature Pulse Rate Pulse Rate [Pulse Oximeter] Respiratory Rate 13 11 L 7 L Blood Pressure 122/72 Blood Pressure [Le ft Upper Arm] Pulse Oximetry Oxygen Delivery Me thod 07/04/25 17:30 07/04/25 17:31 07/04/25 17:32 Temperature Pulse Rate 86 Pulse Rate [Pulse Oximeter] Respiratory Rate 16 13 15 Blood Pressure 130/91 H Blood Pressure [Le ft Upper Arm] Pulse Oximetry 97 Oxygen Delivery Me thod 07/04/25 17:45 07/04/25 18:00 07/04/25 18:01 Temperature Pulse Rate Pulse Rate [Pulse Oximeter] Respiratory Rate 12 17 18 Blood Pressure 131/99 H Blood Pressure [Le ft Upper Arm] Pulse Oximetry Oxygen Delivery Me thod 07/04/25 18:20 07/04/25 18:30 07/04/25 18:31 Temperature Pulse Rate Pulse Rate [Pulse Oximeter] Respiratory Rate 13 11 L 12 Blood Pressure 132/75 Blood Pressure [Le ft Upper Arm] Pulse Oximetry Oxygen Delivery Me thod 07/04/25 18:45 07/04/25 19:00 07/04/25 19:01 Temperature Pulse Rate Pulse Rate [Pulse Oximeter] Respiratory Rate 14 23 12 Blood Pressure 140/73 H Blood Pressure [Le ft Upper Arm] Pulse Oximetry Oxygen Delivery Me thod 07/04/25 19:15 07/04/25 19:28 Temperature Pulse Rate Pulse Rate [Pulse Oximeter] Respiratory Rate 26 H Blood Pressure Blood Pressure [Le ft Upper Arm] Pulse Oximetry 95 Oxygen Delivery Me thod Room Air Course Course ED Course: IV established. Patient did receive aspirin. EKG, read by me, shows atrial fibrillation with occasional ventricular paced complexes. Pulse is 70. Point of care troponin is 0. CBC shows slight anemia with hemoglobin is 12.6. INR is therapeutic at 2.32. BNP 16 60. Blood work otherwise completely normal. Repeat troponin 0. Repeat EKG did not show any acute changes. Patient stated that chest pressure was still present, 2/10 in intensity. Patient's Heart Score is 3 which puts him at low risk for a coronary event. However, given that he was still having chest discomfort we did proceed with a chest CT without contrast. Given that the patient is anticoagulated the likelihood of a PE is very low. Patient also is not exhibiting any signs of shortness of breath, hypoxia or tachycardia. Given his symptoms are anterior and superficial, I think that the likelihood of an aortic dissection is extremely low. Chest CT shows pericardial effusion concerning for hemopericardium. Discussed with Dr. Billings, cardiology at [facility], who recommends admission for observation and echocardiogram in the morning to make sure that the hemopericardium is not getting larger. Recommends INR goal of less than 2.5. Did not recommend any reversal agents at this time. Vital Signs Vital signs: Initial Vital Signs Temperature 98.3 F 07/04/25 15:15 Temperature Source Temporal Artery Scan 07/04/25 15:15 Pulse Rate 84 07/04/25 15:15 Respiratory Rate 16 07/04/25 15:15 Blood Pressure 104/64 07/04/25 15:15 Blood Pressure Mean 77 07/04/25 15:15 Blood Pressure Position Supine 07/04/25 15:15 Pulse Oximetry 95 07/04/25 15:15 Oxygen Delivery Method Room Air 07/04/25 15:15 Vital Signs Temperature 98.3 F 07/04/25 15:15 Pulse Rate 84 07/04/25 15:15 Respiratory Rate 16 07/04/25 15:15 Blood Pressure 104/64 07/04/25 15:15 Pulse Oximetry 95 07/04/25 15:15 Oxygen Delivery Method Room Air 07/04/25 15:15 Temperature 98.3 F 07/04/25 15:15 Pulse Rate 86 07/04/25 17:31 Respiratory Rate 26 H 07/04/25 19:15 Blood Pressure 140/73 H 07/04/25 19:01 Pulse Oximetry 95 07/04/25 19:28 Oxygen Delivery Method Room Air 07/04/25 19:28 Medications Administered Medications: Discontinued Medications Generic Name Dose Route Start Last Admin Trade Name Freq PRN Reason Stop Dose Admin Aspirin 324 mg 07/04/25 15:38 07/04/25 16:03 Aspirin 81 Mg Tab.Chew PO 07/04/25 15:39 324 mg ONCE ONE Administration Medical Decision Making MDM Narrative Medical decision making narrative: 85-year-old male with a hemo pericardium of unclear etiology. Patient will be admitted for further management. Lab Data Lab results reviewed: Yes I reviewed the patient's lab results Labs: Lab Results 07/04/25 07/04/25 07/04/25 Range/Units 15:10 15:39 16:00 WBC 10.32 (4.50-11.00) K/uL RBC 4.04 L (4.30-5.90) m/uL Hgb 12.6 L (13.5-17.5) gm/dL Hct 39.0 (37.0-53.0) % MCV 97 (80-100) fL MCH 31 (26-34) pg MCHC 32 (32-36) gm/dL RDW Coeff of Kim 13.0 (11.5-15.5) % Plt Count 221 (140-440) K/uL Neut % (Auto) 61.7 (42.0-72.0) % Lymph % (Auto) 24.0 (20-44) % [place] % (Auto) 10.9 (0.0-11.0) % Eos % (Auto) 2.4 (0.0-7.0) % Baso % (Auto) 0.6 (0.0-3.0) % Neut # (Auto) 6.37 (1.7-7.0) K/uL Lymph # (Auto) 2.48 (0.90-2.90) K/uL [place] # (Auto) 1.10 H (0.00-0.90) K/UL Eos # (Auto) 0.25 (0.00-0.50) K/uL Baso # (Auto) 0.06 (0.00-0.30) K/uL Abs Immat Gran (auto) 0.04 (0.00-0.30) K/uL Imm/Tot Granulo (auto) 0.4 % INR 2.32 H (0.91-1.10) Sodium 138 (135-149) mmol/L Potassium 4.2 (3.6-5.1) mmol/L Chloride 101 (96-114) mmol/L Carbon Dioxide 27 (20-32) mmol/L Anion Gap 10 (7-15) mEq/L BUN 30 (7-30) mg/dL Creatinine 1.2 (0.5-1.5) mg/dL Estimated Creat Clear 47.06 Estimated GFR 59 ml/min Glucose 85 (60-115) mg/dL Lactate 1.3 (0.5-1.9) mmol/L Calcium 8.8 (8.4-10.6) mg/dL Magnesium 1.8 (1.5-2.6) mg/dL Total Bilirubin 0.6 (0.1-1.5) mg/dL Direct Bilirubin 0.2 (0.0-0.5) mg/dL AST 23 (12-35) U/L ALT 18 (4-50) U/L Alkaline Phosphatase 56 (40-150) U/L Troponin I < 0.01 (0.01-0.04) ng/mL C-Reactive Protein 0.9 (0.5-1.0) mg/dL NT-Pro-B Natriuret Pep 1660 H (See Note) pg/mL Total Protein 6.4 (6.0-8.3) g/dL Albumin 3.8 (3.3-5.0) g/dL Lipase 84 (23-300) U/L SARS-CoV-2 (PCR) Negative SARS-CoV-2 (Negative) Influenza Type A (PCR) Negative PCR FLU A (Negative) Influenza Type B (PCR) Negative PCR FLU B (Negative) POC Troponin I 0.00 L (0.01-0.04) ng/ml 07/04/25 Range/Units 17:22 WBC (4.50-11.00) K/uL RBC (4.30-5.90) m/uL Hgb (13.5-17.5) gm/dL Hct (37.0-53.0) % MCV (80-100) fL MCH (26-34) pg MCHC (32-36) gm/dL RDW Coeff of Kim (11.5-15.5) % Plt Count (140-440) K/uL Neut % (Auto) (42.0-72.0) % Lymph % (Auto) (20-44) % [place] % (Auto) (0.0-11.0) % Eos % (Auto) (0.0-7.0) % Baso % (Auto) (0.0-3.0) % Neut # (Auto) (1.7-7.0) K/uL Lymph # (Auto) (0.90-2.90) K/uL [place] # (Auto) (0.00-0.90) K/UL Eos # (Auto) (0.00-0.50) K/uL Baso # (Auto) (0.00-0.30) K/uL Abs Immat Gran (auto) (0.00-0.30) K/uL Imm/Tot Granulo (auto) % INR (0.91-1.10) Sodium (135-149) mmol/L Potassium (3.6-5.1) mmol/L Chloride (96-114) mmol/L Carbon Dioxide (20-32) mmol/L Anion Gap (7-15) mEq/L BUN (7-30) mg/dL Creatinine (0.5-1.5) mg/dL Estimated Creat Clear Estimated GFR ml/min Glucose (60-115) mg/dL Lactate (0.5-1.9) mmol/L Calcium (8.4-10.6) mg/dL Magnesium (1.5-2.6) mg/dL Total Bilirubin (0.1-1.5) mg/dL Direct Bilirubin (0.0-0.5) mg/dL AST (12-35) U/L ALT (4-50) U/L Alkaline Phosphatase (40-150) U/L Troponin I (0.01-0.04) ng/mL C-Reactive Protein (0.5-1.0) mg/dL NT-Pro-B Natriuret Pep (See Note) pg/mL Total Protein (6.0-8.3) g/dL Albumin (3.3-5.0) g/dL Lipase (23-300) U/L SARS-CoV-2 (PCR) (Negative) Influenza Type A (PCR) (Negative) Influenza Type B (PCR) (Negative) POC Troponin I 0.00 L (0.01-0.04) ng/ml Imaging Data CT scan - chest: Attestation: I have reviewed the pertinent imaging results. Radiologist's impression: TECHNIQUE: CT of the chest without IV contrast. Coronal and sagittal reconstructions. COMPARISON: Same day chest radiograph. FINDINGS: Cardiovascular structures: Normal heart size. Normal caliber thoracic aorta and central pulmonary arteries. Right chest pacemaker with leads in the right atrium and right ventricle. Mediastinum and geoffrey: Few mildly prominent mediastinal lymph nodes may be reactive. There is a small pericardial effusion which appears hyperdense suggesting hemopericardium. Lungs and pleura: No focal consolidation, pleural effusion, or pneumothorax. Minimal bibasilar atelectasis. Biapical pleural-parenchymal scarring. Mild diffuse bronchial wall thickening. 2 mm noncalcified pulmonary nodule in the lateral right upper lobe (series 3 image 34). 2 mm noncalcified pulmonary nodule along the left major fissure (image 58). Few other tiny nodules bilaterally. Chest wall: Collateral vessels in the right anterior chest wall. No mass or adenopathy. Upper abdomen: Small hiatal hernia. Remainder unremarkable. Bones: Degenerative changes of the spine. Hemangioma in the L1 vertebral body. Old left posterior rib fracture. IMPRESSION: 1. Small high density pericardial effusion suggesting hemopericardium, of uncertain etiology. 2. Mild diffuse bronchial wall thickening suggesting bronchitis. No focal lung infiltrates. 3. Few small noncalcified pulmonary nodules measuring up to 2 mm. Please see follow-up guidelines below. ECG Data Attestation: I personally reviewed and interpreted this ECG as follows: Discharge Plan Discharge Clinical Impression: Hemopericardium Patient Disposition: Admitted As Observation Condition: Stable
[2025-07-04 16:30] LABS: Slide Review Reflex No
[2025-07-04 16:40] LABS: Albumin* 3.8 g/dL (3.3-5.0); Chloride* 101 mmol/L (96-114)
[2025-07-04 16:41] LABS: Potassium* 4.2 mmol/L (3.6-5.1); Sodium* 138 mmol/L (135-149)
[2025-07-04 16:43] LABS: Alanine Aminotransferase* 18 U/L (4-50); Alkaline Phosphatase* 56 U/L (40-150); Anion Gap 10 mEq/L (7-15); Aspartate Amino Transferase* 23 U/L (12-35); Bilirubin Direct* 0.2 mg/dL (0.0-0.5); Bilirubin Total* 0.6 mg/dL (0.1-1.5); Blood Urea Nitrogen* 30 mg/dL (7-30); Carbon Dioxide* 27 mmol/L (20-32); Creatinine* 1.2 mg/dL (0.5-1.5); Est. Creatinine Clearance* 47.06; Estimated Glomerular Filt Rate 59 ml/min; Total Protein* 6.4 g/dL (6.0-8.3)
[2025-07-04 16:44] LABS: Calcium* 8.8 mg/dL (8.4-10.6); Glucose* 85 mg/dL (60-115)
[2025-07-04 16:53] LABS: PCR FLU A Negative PCR FLU A (Negative); PCR FLU B Negative PCR FLU B (Negative); SARS PCR* Negative SARS-CoV-2 (Negative)
[2025-07-04 16:55] LABS: NT Pro B Type NatriureticPept* 1660 pg/mL (See Note)
--- NOTE | 2025-07-04 17:36 | CRLHL7_ITS ---
For Patients: As a result of the 21st Century Cures Act, medical imaging exams and procedure reports are released immediately into your electronic medical record. You may view this report before your referring provider. If you have questions, please contact your health care provider. INDICATION: Shortness of breath. TECHNIQUE: CT of the chest without IV contrast. Coronal and sagittal reconstructions. COMPARISON: Same day chest radiograph. FINDINGS: Cardiovascular structures: Normal heart size. Normal caliber thoracic aorta and central pulmonary arteries. Right chest pacemaker with leads in the right atrium and right ventricle. Mediastinum and geoffrey: Few mildly prominent mediastinal lymph nodes may be reactive. There is a small pericardial effusion which appears hyperdense suggesting hemopericardium. Lungs and pleura: No focal consolidation, pleural effusion, or pneumothorax. Minimal bibasilar atelectasis. Biapical pleural-parenchymal scarring. Mild diffuse bronchial wall thickening. 2 mm noncalcified pulmonary nodule in the lateral right upper lobe (series 3 image 34). 2 mm noncalcified pulmonary nodule along the left major fissure (image 58). Few other tiny nodules bilaterally. Chest wall: Collateral vessels in the right anterior chest wall. No mass or adenopathy. Upper abdomen: Small hiatal hernia. Remainder unremarkable. Bones: Degenerative changes of the spine. Hemangioma in the L1 vertebral body. Old left posterior rib fracture. IMPRESSION: 1. Small high density pericardial effusion suggesting hemopericardium, of uncertain etiology. 2. Mild diffuse bronchial wall thickening suggesting bronchitis. No focal lung infiltrates. 3. Few small noncalcified pulmonary nodules measuring up to 2 mm. Please see follow-up guidelines below. [employer] GUID[employer]IN[employer] - SOLID NODULES: : MULTIPLE LOW RISK - nodule less than 6 mm: No routine follow-up. - nodule 6-8 mm: CT at 3-6 months, then consider CT at 18-24 months. - nodule greater than 8 mm: CT at 3-6 months, then consider CT at 18-24 months. MULTIPLE HIGH RISK - nodule less than 6 mm: Optional CT at 12 months. - nodule 6-8 mm: CT at 3-6 months, then at 18-24 months. - nodule greater than 8 mm: CT at 3-6 months, then at 18-24 months. Please note that all CT scans at this facility use dose modulation, iterative reconstruction, and/or weight-based dosing when appropriate to reduce radiation dose to as low as reasonably achievable. Dictated by Megan La MD @ 07/04/2025 7:23:42 PM (Electronically Signed)
[2025-07-04 17:45] LABS: Troponin, Point-of-Care* 0.00 ng/ml (0.01-0.04)
--- NOTE | 2025-07-04 21:02 | PM.IMHP1 ---
Assessment and Plan Assessment and plan (1) Hemopericardium: Problem comment: Suspected to be the cause of chest pain. Suspected based on CT findings Status: Acute (2) Chest pain: Problem comment: Probably from pericardial fluid/blood. obtain echo Status: Acute (3) History of permanent cardiac pacemaker placement: Problem comment: Generator replaced at [facility] in July 2024. Most recent interrogation of pacemaker in May 2025 showed normal function Status: Acute (4) Lower extremity edema: Problem comment: Chronic Status: Acute (5) History of cardiomyopathy: Problem comment: Followed by [facility]. Status: Acute (6) Atrial fibrillation: Problem comment: On warfarin, INR 2.3. On high-dose metoprolol 150 b.i.d. and digoxin 125 mcg daily for rate control Status: Chronic Plan 85-year-old male admitted to the hospital with chest pain and suspected hemopericardium. Admit for cardiac monitoring, vital sign monitoring, echocardiogram. Total Time Spent Total Time Spent: Total time spent today is 65 minutes in reviewing outside records, coordination of care and discussing with patient other providers ongoing management of hemopericardium Hospitalist- H&P: HPI History of Present Illness Date Seen: 07/04/25 Chief complaint: Chest pain Narrative: Cee Scott is a 85 year old male with atrial fibrillation on warfarin, digoxin and metoprolol and permanent pacemaker admitted to the hospital with onset of chest pain this morning. He awoke at about 4:00 a.m. with chest pain. No chest pain prior to that. Chest pain has been constant though now a little better. Does not radiate. He has been relatively sedentary today. He has had no dyspnea, cough or fever. INR is 2.3. He has no previous history of chest pain or coronary artery disease. He has AFib managed with rate control by digoxin and metoprolol and stroke prophylaxis with warfarin. Pacemaker in place is new, replaced July of 2024. Testing last month showed it was normally functioning. Review of Systems Narrative: He reports generally feeling well without recent illness or injury. Medical Decision Making Medical Decision Making Has patient completed a Health Care Directive: Yes [facility] Medical History (Updated 07/04/25 @ 21:16 by Jadon Hamm MD) Peripheral neuropathy ?G62.9 - Polyneuropathy, unspecified (ICD-10) Chest pain ?R07.9 - Chest pain, unspecified (ICD-10) COVID-19 (03/05/24) ?U07.1 - COVID-19 (ICD-10) History of basal cell carcinoma (BCC) ?Z85.828 - Personal history of other malignant neoplasm of skin (ICD-10) TIA (transient ischemic attack) ?G45.9 - Transient cerebral ischemic attack, unspecified (ICD-10) Ischemic stroke (2010) ?I63.9 - Cerebral infarction, unspecified (ICD-10) Surgical History (Updated 07/04/25 @ 21:10 by Jadon Hamm MD) History of colonoscopy ?Z98.890 - Other specified postprocedural states (ICD-10) History of permanent cardiac pacemaker placement ?Z95.0 - Presence of cardiac pacemaker (ICD-10) History of cataract surgery ?Z98.49 - Cataract extraction status, unspecified eye (ICD-10) History of lipoma ?Z86.018 - Personal history of other benign neoplasm (ICD-10) Hx of tonsillectomy ?Z90.89 - Acquired absence of other organs (ICD-10) History of open reduction and internal fixation (ORIF) procedure ?Z98.890 - Other specified postprocedural states (ICD-10) Family History (Updated 07/04/25 @ 21:10 by Jadon Hamm MD) Brother Heart disease Mother Kidney disease Father Pancreatic cancer Social History (Updated 07/04/25 @ 21:11 by Jadon Hamm MD) Narrative: He lives with his who is also designated healthcare power of prosecuting attorney. Code status is full. He does not smoke. He does not drink alcohol. 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 What is your current living situation?: I presently have a place to live Problems where you live: no known problems Problems where you live details: n/a In the past 12 months, utilities in danger of being shut off: no In past 12 months, lack of transportation kept you from medical appts, meetings, work, or getting things needed for daily living: no In the past 12 mos, have been you worried that your food would run out before you had money to buy more?: never true In the past 12 mos, the food you bought just didn't last and you didn't have money to buy more?: never true Smoking Status: Never smoker Do you use any of these nicotine containing products: None How often do you have a drink containing alcohol: never How often do you have six or more drinks on one occasion: Never AUDIT-C Alcohol total score: 0 Non-prescribed substance use: denies use Caffeine: Yes How often does anyone, including family, friends and others, physically hurt you: never How often does anyone, including family, friends and others, insult or talk down to you: never How often does anyone, including family, friends and others, threaten you with harm: never How often does anyone, including family, friends and others, scream or curse at you: never Meds Home Medications and Allergies Home Medications ?Medication ?Instructions ?Recorded ?Confirmed ?Type digoxin 125 mcg (0.125 mg) tablet 125 mcg PO DAILY 05/19/23 07/04/25 History metoprolol succinate 100 mg 150 mg PO BID 05/19/23 07/04/25 History tablet,extended release 24 hr warfarin 7.5 mg tablet 7.5 mg PO 05/19/23 07/04/25 History glucosamine sulfate 500 mg tablet 250 mg PO DAILY 03/05/24 07/04/25 History (Glucosamine) vit C 250 mg-vit E 90 mg-zinc 40 1 tab PO BID 03/05/24 07/04/25 History mg-copper 1 [id number] capsule (PreserVision AREDS-2) mupirocin 2 % topical ointment 1 applic topical TID 5 days #22 03/12/25 07/04/25 Rx grams Allergies Allergy/AdvReac Type Severity Reaction Status Date / Time morphine Allergy Mild Urination Verified 07/04/25 14:27 Difficulties diphenhydramine (From Allergy tachycardia Verified 07/04/25 14:27 Benadryl) Exam Narrative: Exam Narrative: He is alert pleasant and in no distress. He gives his own history with good detail. Oropharynx normal. Neck is supple without mass or adenopathy. No jugular venous distension. Respirations are clear to auscultation. Cardiovascular: S1, S2, regular rate and rhythm. No murmur gallop or rub. Abdomen: Bowel sounds active. Abdomen is soft without tenderness or mass. Extremities bilateral 2+ ankle edema. Diminished pedal pulses. Subjectively intact sensation in his feet. No skin lesions. Const: Vital Signs, click to edit/add: Vital Signs - 24 hr 07/04/25 15:15 07/04/25 15:17 07/04/25 15:20 Temperature 98.3 F Pulse Rate 74 Pulse Rate [Pulse Oximeter] 84 Respiratory Rate 16 11 L 22 Blood Pressure 118/78 Blood Pressure [Le ft Upper Arm] 104/64 Blood Pressure [Ri ght Arm] Pulse Oximetry 95 95 Oxygen Delivery Me thod Room Air 07/04/25 15:30 07/04/25 15:31 07/04/25 15:45 Temperature Pulse Rate 78 75 Pulse Rate [Pulse Oximeter] Respiratory Rate 19 12 9 L Blood Pressure 117/71 Blood Pressure [Le ft Upper Arm] Blood Pressure [Ri ght Arm] Pulse Oximetry 99 99 97 Oxygen Delivery Me thod 07/04/25 16:01 07/04/25 16:02 07/04/25 16:15 Temperature Pulse Rate Pulse Rate [Pulse Oximeter] Respiratory Rate 25 H 12 17 Blood Pressure 123/83 Blood Pressure [Le ft Upper Arm] Blood Pressure [Ri ght Arm] Pulse Oximetry Oxygen Delivery Me thod 07/04/25 16:30 07/04/25 16:31 07/04/25 16:45 Temperature Pulse Rate Pulse Rate [Pulse Oximeter] Respiratory Rate 10 L 10 L 13 Blood Pressure 124/82 Blood Pressure [Le ft Upper Arm] Blood Pressure [Ri ght Arm] Pulse Oximetry Oxygen Delivery Me thod 07/04/25 17:00 07/04/25 17:01 07/04/25 17:15 Temperature Pulse Rate Pulse Rate [Pulse Oximeter] Respiratory Rate 13 11 L 7 L Blood Pressure 122/72 Blood Pressure [Le ft Upper Arm] Blood Pressure [Ri ght Arm] Pulse Oximetry Oxygen Delivery Me thod 07/04/25 17:30 07/04/25 17:31 07/04/25 17:32 Temperature Pulse Rate 86 Pulse Rate [Pulse Oximeter] Respiratory Rate 16 13 15 Blood Pressure 130/91 H Blood Pressure [Le ft Upper Arm] Blood Pressure [Ri ght Arm] Pulse Oximetry 97 Oxygen Delivery Me thod 07/04/25 17:45 07/04/25 18:00 07/04/25 18:01 Temperature Pulse Rate Pulse Rate [Pulse Oximeter] Respiratory Rate 12 17 18 Blood Pressure 131/99 H Blood Pressure [Le ft Upper Arm] Blood Pressure [Ri ght Arm] Pulse Oximetry Oxygen Delivery Me thod 07/04/25 18:20 07/04/25 18:30 07/04/25 18:31 Temperature Pulse Rate Pulse Rate [Pulse Oximeter] Respiratory Rate 13 11 L 12 Blood Pressure 132/75 Blood Pressure [Le ft Upper Arm] Blood Pressure [Ri ght Arm] Pulse Oximetry Oxygen Delivery Me thod 07/04/25 18:45 07/04/25 19:00 07/04/25 19:01 Temperature Pulse Rate Pulse Rate [Pulse Oximeter] Respiratory Rate 14 23 12 Blood Pressure 140/73 H Blood Pressure [Le ft Upper Arm] Blood Pressure [Ri ght Arm] Pulse Oximetry Oxygen Delivery Me thod 07/04/25 19:15 07/04/25 19:28 07/04/25 20:15 Temperature 97.9 F Pulse Rate Pulse Rate [Pulse Oximeter] 78 Respiratory Rate 26 H 17 Blood Pressure Blood Pressure [Le ft Upper Arm] Blood Pressure [Ri ght Arm] 143/89 H Pulse Oximetry 95 96 Oxygen Delivery Me thod Room Air Room Air 07/04/25 20:15 Temperature Pulse Rate Pulse Rate [Pulse Oximeter] Respiratory Rate Blood Pressure Blood Pressure [Le ft Upper Arm] Blood Pressure [Ri ght Arm] Pulse Oximetry 96 Oxygen Delivery Me thod Room Air Documenting provider has reviewed patient's vital signs: yes Hospitalist - H&P: Result Labs Labs: Short CBC 07/04/25 Range/Units 15:10 WBC 10.32 (4.50-11.00) K/uL Hgb 12.6 L (13.5-17.5) gm/dL Hct 39.0 (37.0-53.0) % Plt Count 221 (140-440) K/uL BMP 07/04/25 15:10 Sodium 138 Potassium 4.2 Chloride 101 Carbon Dioxide 27 BUN 30 Creatinine 1.2 Glucose 85 Calcium 8.8 Cardiac Enzymes 07/04/25 Range/Units 15:10 Troponin I < 0.01 (0.01-0.04) ng/mL Liver Function 07/04/25 Range/Units 15:10 Total Bilirubin 0.6 (0.1-1.5) mg/dL Direct Bilirubin 0.2 (0.0-0.5) mg/dL AST 23 (12-35) U/L ALT 18 (4-50) U/L Alkaline Phosphatase 56 (40-150) U/L Albumin 3.8 (3.3-5.0) g/dL ECG Attestation: I personally reviewed and interpreted this ECG as follows: (Rate controlled atrial fibrillation with occasional PVCs and early repolarization.) Imaging CT scan - chest: Radiologist's impression: INDICATION: Shortness of breath. TECHNIQUE: CT of the chest without IV contrast. Coronal and sagittal reconstructions. COMPARISON: Same day chest radiograph. FINDINGS: Cardiovascular structures: Normal heart size. Normal caliber thoracic aorta and central pulmonary arteries. Right chest pacemaker with leads in the right atrium and right ventricle. Mediastinum and geoffrey: Few mildly prominent mediastinal lymph nodes may be reactive. There is a small pericardial effusion which appears hyperdense suggesting hemopericardium. Lungs and pleura: No focal consolidation, pleural effusion, or pneumothorax. Minimal bibasilar atelectasis. Biapical pleural-parenchymal scarring. Mild diffuse bronchial wall thickening. 2 mm noncalcified pulmonary nodule in the lateral right upper lobe (series 3 image 34). 2 mm noncalcified pulmonary nodule along the left major fissure (image 58). Few other tiny nodules bilaterally. Chest wall: Collateral vessels in the right anterior chest wall. No mass or adenopathy. Upper abdomen: Small hiatal hernia. Remainder unremarkable. Bones: Degenerative changes of the spine. Hemangioma in the L1 vertebral body. Old left posterior rib fracture. IMPRESSION: 1. Small high density pericardial effusion suggesting hemopericardium, of uncertain etiology. 2. Mild diffuse bronchial wall thickening suggesting bronchitis. No focal lung infiltrates. 3. Few small noncalcified pulmonary nodules measuring up to 2 mm. Please see follow-up guidelines below. [employer] GUID[employer]IN[employer] - SOLID NODULES: : MULTIPLE LOW RISK - nodule less than 6 mm: No routine follow-up. - nodule 6-8 mm: CT at 3-6 months, then consider CT at 18-24 months. - nodule greater than 8 mm: CT at 3-6 months, then consider CT at 18-24 months. MULTIPLE HIGH RISK - nodule less than 6 mm: Optional CT at 12 months. - nodule 6-8 mm: CT at 3-6 months, then at 18-24 months. - nodule greater than 8 mm: CT at 3-6 months, then at 18-24 months.
[2025-07-04] MEDS: METOPROLOL SUCCINATE (XL) 100 MG TAB 150 MG PO (22:27)
[2025-07-04] MEDS: SODIUM CHLORIDE 0.9 % (FLUSH) 10 ML SYRINGE 5 ML IVF (22:29)
--- NOTE | 2025-07-04 23:00 | PC.NURSE ---
Shift note ([id number]): Patient pleasant, alert and oriented to self and situation. Ambulates with walker and stand-by assist. Bed alarms on for safety.?Denied pain.??
--- NOTE | 2025-07-04 23:04 | PC.NURSE ---
Shift note ([id number]): Patient admitted from ED at?2006. Arrived via ED bed. Pt pleasant, alert and oriented.?Ambulating independently.?Reports feeling tolerable pressure in chest rated 2-3/10. Fine crackles heard in left posterior base. MD updated.?
[2025-07-04 23:31] LABS: Digoxin* < 0.4 ng/mL (0.8-2.0)
[2025-07-05 03:00] VITALS: RESP 16
[2025-07-05 05:21] VITALS: RESP 16
--- NOTE | 2025-07-05 05:23 | PC.NURSE ---
[id number] Pt slept during the night, earlier this morning pt states chest pressure was less painful. awais barger, N/V.
[2025-07-05 06:40] LABS: INR 2.27 (0.91-1.10); Prothrombin Time 26.2 Seconds
[2025-07-05 07:00] VITALS: BP 118/67; PULSE 85; PULSE 89; RESP 18; TEMP 36.6; O2SAT 94
[2025-07-05 09:20] VITALS: PULSE 85
[2025-07-05] MEDS: METOPROLOL SUCCINATE (XL) 100 MG TAB 150 MG PO (09:20)
[2025-07-05] MEDS: DIGOXIN 125 MCG TABLET PO (09:20)
[2025-07-05] MEDS: SODIUM CHLORIDE 0.9 % (FLUSH) 10 ML SYRINGE 5 ML IVF (09:23)
[2025-07-05 11:00] VITALS: BP 121/81; PULSE 90; RESP 18; TEMP 36.8; O2SAT 94
[2025-07-05 15:00] VITALS: BP 114/60; PULSE 84; PULSE 85; PULSE 86; RESP 16; TEMP 36.3; O2SAT 94
--- NOTE | 2025-07-05 16:13 | PM.DS1 ---
DS: Providers Provider Time Seen by Provider: 11:11 Date Seen: 07/05/25 Date of admission: 07/04/25 20:05 Primary care physician: Rony Khan MD Admitting Clinician: Jadon Hamm MD Attending Physician on discharge: Jadon Hamm MD Date of Discharge: 07/05/25 DS: Diagnosis Discharge Diagnosis (1) Hemopericardium: Status: Acute Problem details: Suspected to be the cause of chest pain. Suspected based on CT findings - 07/05/25 Symptoms have resolved. ECHO is pending. Hgb stable. My partner, Dr. Hamm is assuming care for the evening shift and will follow up on the ECHO results, and consult with cardiology if necessary. Discussed holding warfarin for 1 week with patient and due to potential for worsening bleeding, and risk for stroke while off warfarin. ECHO: EF 55-65, severely enlarged left atrium, right ventricular cavity size is mildly enlarged global systolic RV function is normal. The aortic valve is trileaflet and sclerotic, no stenosis and mild regurgitation. The inferior vena cava is dilated, respiratory size variation less than 50%. There is no clear evidence for cardiac tamponade on the echo, but clinical correlation is recommended. Trivial pericardial effusion. (2) Chest pain: Status: Acute Problem details: Probably from pericardial fluid/blood. obtain echo (3) History of permanent cardiac pacemaker placement: Status: Acute Problem details: Generator replaced at [facility] in July 2024. Most recent interrogation of pacemaker in May 2025 showed normal function (4) Lower extremity edema: Status: Chronic Problem details: Chronic (5) History of cardiomyopathy: Status: Chronic Problem details: Followed by [facility]. (6) Atrial fibrillation: Status: Chronic Problem details: On warfarin, INR 2.3. On high-dose metoprolol 150 b.i.d. and digoxin 125 mcg daily for rate control DS: Summary Hospital Course Hospital Course: Cee Scott is a 85 year old male with atrial fibrillation on warfarin, digoxin and metoprolol and permanent pacemaker admitted to the hospital with onset of chest pain this morning. He awoke at about 4:00 a.m. with chest pain. No chest pain prior to that. Chest pain has been constant though now a little better. Does not radiate. He has been relatively sedentary today. He has had no dyspnea, cough or fever. INR is 2.3. He has no previous history of chest pain or coronary artery disease. He has AFib managed with rate control by digoxin and metoprolol and stroke prophylaxis with warfarin. Pacemaker in place is new, replaced July of 2024. Testing last month showed it was normally functioning. Overnight his chest discomfort completely resolved. Vitals have remained stable. Echocardiogram results above, no tamponade on ECHO, trivial pericardial effusion. Patient was discharged home in stable condition. Time Spent with Patient Time attestation: Total time spent providing and/or coordinating discharge services: Exam Narrative: Exam Narrative: General: No acute distress. Awake, alert, oriented x3. No pallor. No jaundice. Oropharynx: Clear. Mucous membranes moist. Cardiovascular: Regular rate and rhythm. No murmurs, gallops, or rubs. Respiratory: Clear to auscultation bilaterally. No wheezes or crackles. Abdomen: Bowel sounds present. Soft, nondistended, nontender. Extremities: 2 +bilateral lower extremity edema. Const: Vital Signs, click to edit/add: Vital Signs - 24 hr 07/04/25 16:15 07/04/25 16:30 07/04/25 16:31 Temperature Pulse Rate Pulse Rate [Pulse Oximeter] Respiratory Rate 17 10 L 10 L Blood Pressure 124/82 Blood Pressure [Ri ght Arm] [facility]xim[facility] 07/04/25 16:45 07/04/25 17:00 07/04/25 17:01 Temperature Pulse Rate Pulse Rate [Pulse Oximeter] Respiratory Rate 13 13 11 L Blood Pressure 122/72 Blood Pressure [Ri ght Arm] Pulse Oximetry [facility] 07/04/25 17:15 07/04/25 17:30 07/04/25 17:31 Temperature Pulse Rate 86 Pulse Rate [Pulse Oximeter] Respiratory Rate 7 L 16 13 Blood Pressure 130/91 H Blood Pressure [Ri ght Arm] Pulse Oximetry [facility] 07/04/25 17:32 07/04/25 17:45 07/04/25 18:00 Temperature Pulse Rate Pulse Rate [Pulse Oximeter] Respiratory Rate 15 12 17 Blood Pressure Blood Pressure [Ri ght Arm] Pulse Oximetry [facility] 07/04/25 18:01 07/04/25 18:20 07/04/25 18:30 Temperature Pulse Rate Pulse Rate [Pulse Oximeter] Respiratory Rate 18 13 11 L Blood Pressure 131/99 H Blood Pressure [Ri ght Arm] Pulse Oximetry Oxygen Delivery Me thod 07/04/25 18:31 07/04/25 18:45 07/04/25 19:00 Temperature Pulse Rate Pulse Rate [Pulse Oximeter] Respiratory Rate 12 14 23 Blood Pressure 132/75 Blood Pressure [Ri ght Arm] Pulse Oximetry Oxygen Delivery Me thod 07/04/25 19:01 07/04/25 19:15 07/04/25 19:28 Temperature Pulse Rate Pulse Rate [Pulse Oximeter] Respiratory Rate 12 26 H Blood Pressure 140/73 H Blood Pressure [Ri ght Arm] Pulse Oximetry 95 Oxygen Delivery Me thod Room Air 07/04/25 20:15 07/04/25 20:15 07/04/25 21:30 Temperature 97.9 F Pulse Rate 78 Pulse Rate [Pulse Oximeter] 78 Respiratory Rate 17 Blood Pressure Blood Pressure [Ri ght Arm] 143/89 H Pulse Oximetry 96 96 Oxygen Delivery Sd thod Room Air Room Air 07/04/25 22:30 07/04/25 22:31 07/05/25 03:00 Temperature 97.6 F Pulse Rate Pulse Rate [Pulse Oximeter] 76 Respiratory Rate 17 17 16 Blood Pressure Blood Pressure [Ri ght Arm] 117/61 Pulse Oximetry 94 Oxygen Delivery Sd thod Room Air 07/05/25 05:21 07/05/25 07:00 07/05/25 07:00 Temperature 97.8 F Pulse Rate Pulse Rate [Pulse Oximeter] 85 85 Respiratory Rate 16 18 Blood Pressure Blood Pressure [Ri ght Arm] 118/67 Pulse Oximetry 94 Oxygen Delivery Sd thod Room Air 07/05/25 07:00 07/05/25 09:20 07/05/25 11:00 Temperature 98.3 F Pulse Rate 89 85 Pulse Rate [Pulse Oximeter] 90 Respiratory Rate 18 Blood Pressure Blood Pressure [Ri ght Arm] 121/81 Pulse Oximetry 94 Oxygen Delivery Me thod Room Air 07/05/25 15:00 Temperature 97.3 F L Pulse Rate Pulse Rate [Pulse Oximeter] 86 Respiratory Rate 16 Blood Pressure Blood Pressure [Ri ght Arm] 114/60 Pulse Oximetry 94 Oxygen Delivery Me thod Room Air DS: Data Data Completed and Pending Completed studies during hospitalization: 1124 EKG: Atrial fibrillation with occasional ventricular paced complexes, 71 beats per minute, early repolarization. Ordering Physician: Aditi Barnett M.D. Date of Service: 07/04/25 Procedure(s): XR chest 2V Accession Number(s): [id number] cc: Rony Khan M.D.; Aditi Barnett M.D.~ For Patients: As a result of the Cures Act, medical imaging exams and procedure reports are released immediately into your electronic medical record. You may view this report before your referring provider. If you have questions, please contact your health care provider. INDICATION: Chest pain, not otherwise described. COMPARISON: None available. TECHNIQUE: PA and lateral views of the chest. FINDINGS: Medical Devices: In-situ right-sided dual lead cardiac conduction device. Lung Volumes: Adequate inspiration. No significant atelectasis. Lungs: Clear lungs. Pleura and Pleural spaces: No significant pleural effusion. No pneumothorax. Mediastinum: Unchanged cardiomegaly. Bony Thorax and Soft Tissues: No significant interval findings. IMPRESSION: No findings to explain the clinical history of chest pain not otherwise specified. Incidental findings described in the body of the report. Dictated by Rylan Hernandes MD @ 07/04/2025 4:20:12 PM (Electronically Signed) Ordering Physician: Aditi Barnett M.D. Date of Service: 07/04/25 Procedure(s): CT chest wo con Accession Number(s): [id number] cc: Rony Khan M.D.; Aditi Barnett M.D.~ For Patients: As a result of the Cures Act, medical imaging exams and procedure reports are released immediately into your electronic medical record. You may view this report before your referring provider. If you have questions, please contact your health care provider. INDICATION: Shortness of breath. TECHNIQUE: CT of the chest without IV contrast. Coronal and sagittal reconstructions. COMPARISON: Same day chest radiograph. FINDINGS: Cardiovascular structures: Normal heart size. Normal caliber thoracic aorta and central pulmonary arteries. Right chest pacemaker with leads in the right atrium and right ventricle. Mediastinum and geoffrey: Few mildly prominent mediastinal lymph nodes may be reactive. There is a small pericardial effusion which appears hyperdense suggesting hemopericardium. Lungs and pleura: No focal consolidation, pleural effusion, or pneumothorax. Minimal bibasilar atelectasis. Biapical pleural-parenchymal scarring. Mild diffuse bronchial wall thickening. 2 mm noncalcified pulmonary nodule in the lateral right upper lobe (series 3 image 34). 2 mm noncalcified pulmonary nodule along the left major fissure (image 58). Few other tiny nodules bilaterally. Chest wall: Collateral vessels in the right anterior chest wall. No mass or adenopathy. Upper abdomen: Small hiatal hernia. Remainder unremarkable. Bones: Degenerative changes of the spine. Hemangioma in the L1 vertebral body. Old left posterior rib fracture. IMPRESSION: 1. Small high density pericardial effusion suggesting hemopericardium, of uncertain etiology. 2. Mild diffuse bronchial wall thickening suggesting bronchitis. No focal lung infiltrates. 3. Few small noncalcified pulmonary nodules measuring up to 2 mm. Please see follow-up guidelines below. [employer] GUID[employer]INES - SOLID NODULES: : MULTIPLE LOW RISK - nodule less than 6 mm: No routine follow-up. - nodule 6-8 mm: CT at 3-6 months, then consider CT at 18-24 months. - nodule greater than 8 mm: CT at 3-6 months, then consider CT at 18-24 months. MULTIPLE HIGH RISK - nodule less than 6 mm: Optional CT at 12 months. - nodule 6-8 mm: CT at 3-6 months, then at 18-24 months. - nodule greater than 8 mm: CT at 3-6 months, then at 18-24 months. Please note that all CT scans at this facility use dose modulation, iterative reconstruction, and/or weight-based dosing when appropriate to reduce radiation dose to as low as reasonably achievable. Dictated by Megan La MD @ 07/04/2025 7:23:42 PM (Electronically Signed) Labs on day of discharge: Labs from last 24 hours 07/05/25 07/04/25 07/04/25 06:02 21:08 17:22 WBC RBC Hgb Hct MCV MCH MCHC RDW Coeff of Kim Plt Count Neut % (Auto) Lymph % (Auto) [place] % (Auto) Eos % (Auto) Baso % (Auto) Neut # (Auto) Lymph # (Auto) [place] # (Auto) Eos # (Auto) Baso # (Auto) Abs Immat Gran (auto) Imm/Tot Granulo (auto) INR 2.27 H Sodium Potassium Chloride Carbon Dioxide Anion Gap BUN Creatinine Estimated Creat Clear Estimated GFR Glucose Calcium Magnesium Total Bilirubin Direct Bilirubin AST ALT Alkaline Phosphatase Troponin I < 0.01 C-Reactive Protein NT-Pro-B Natriuret Pep Total Protein Albumin Lipase Digoxin SARS-CoV-2 (PCR) Influenza Type A (PCR) Influenza Type B (PCR) Lab Acknowledgement Test Added POC Troponin I 0.00 L 07/04/25 07/04/25 16:00 15:10 WBC 10.32 RBC 4.04 L Hgb 12.6 L Hct 39.0 MCV 97 MCH 31 MCHC 32 RDW Coeff of Kim 13.0 Plt Count 221 Neut % (Auto) 61.7 Lymph % (Auto) 24.0 [place] % (Auto) 10.9 Eos % (Auto) 2.4 Baso % (Auto) 0.6 Neut # (Auto) 6.37 Lymph # (Auto) 2.48 [place] # (Auto) 1.10 H Eos # (Auto) 0.25 Baso # (Auto) 0.06 Abs Immat Gran (auto) 0.04 Imm/Tot Granulo (auto) 0.4 INR 2.32 H Sodium 138 Potassium 4.2 Chloride 101 Carbon Dioxide 27 Anion Gap 10 BUN 30 Creatinine 1.2 Estimated Creat Clear 47.06 Estimated GFR 59 Glucose 85 Calcium 8.8 Magnesium 1.8 Total Bilirubin 0.6 Direct Bilirubin 0.2 AST 23 ALT 18 Alkaline Phosphatase 56 Troponin I < 0.01 C-Reactive Protein 0.9 NT-Pro-B Natriuret Pep 1660 H Total Protein 6.4 Albumin 3.8 Lipase 84 Digoxin < 0.4 L SARS-CoV-2 (PCR) Negative SARS-CoV-2 Influenza Type A (PCR) Negative PCR FLU A Influenza Type B (PCR) Negative PCR FLU B Lab Acknowledgement POC Troponin I Ordering Physician: Aditi Barnett M.D. Date of Service: 07/04/25 Procedure(s): XR chest 2V Accession Number(s): [id number] cc: Rony Khan M.D.; Aditi Barnett M.D.~ For Patients: As a result of the Century Cures Act, medical imaging exams and procedure reports are released immediately into your electronic medical record. You may view this report before your referring provider. If you have questions, please contact your health care provider. INDICATION: Chest pain, not otherwise described. COMPARISON: None available. TECHNIQUE: PA and lateral views of the chest. FINDINGS: Medical Devices: In-situ right-sided dual lead cardiac conduction device. Lung Volumes: Adequate inspiration. No significant atelectasis. Lungs: Clear lungs. Pleura and Pleural spaces: No significant pleural effusion. No pneumothorax. Mediastinum: Unchanged cardiomegaly. Bony Thorax and Soft Tissues: No significant interval findings. IMPRESSION: No findings to explain the clinical history of chest pain not otherwise specified. Incidental findings described in the body of the report. Dictated by Rylan Hernandes MD @ 07/04/2025 4:20:12 PM (Electronically Signed) Discharge Plan Discharge Disposition: Home, Self-Care Date of Admission: 07/04/25 20:05 Attending Provider on Discharge: Jadon Hamm Primary Care Provider: Rony Khan Condition: Stable Anticipated Discharge Date/Time: 07/05/25 18:00 Discharge Medications: Continued metoprolol succinate 100 mg tablet extended release 24 hr 150 mg PO BID digoxin 125 mcg (0.125 mg) tablet 125 mcg PO DAILY hydrochlorothiazide 12.5 mg tablet 12.5 mg PO DAILY PreserVision AREDS-2 250-90-40-1 mg capsule 1 tab PO BID Held warfarin 7.5 mg tablet 3.75 - 7.5 mg PO DAILY Hold Instructions: Resume on 07/12/25. Hold until seen by PCP or cardiology next week Rx Instructions: 3.75mg Mon,Wed,Fri and 7.5 all other days of the week Discharge Orders: Discharge Order (Routine); Ordered 07/05/25 Ordered By: Jadon Hamm Patient Education: Digoxin (By mouth), Chest Pain (GEN) Additional Instructions: Okay to take Tylenol for discomfort. Okay to use a heating pad on the chest wall. Do not apply heat directly to the skin and do not use more than 20 minutes at a time every hour. Return to the emergency department if you develop shortness of breath, nausea or vomiting, worsening pain, dizziness or sweating. Recommend follow-up with your primary care provider next week. Follow up with Cardiology in 1 week. Activity Level: No Restrictions Discharge Diet: Regular Follow Up Appointments: Rony Khan MD [Primary Care Provider, Family Practice] Referral Note: Please call your primary care provider to schedule a follow up appointment in 1 week. We will contact you about scheduling a follow up appointment with Cardiology. Forms: [employer] Info Instructions
--- NOTE | 2025-07-05 19:50 | PC.NURSE ---
End of shift Note 247 Patient was very pleasant and cooperative throughout shift. VSS. Afebrile. Independent. A&Ox4. Uses call light appropriately. Call light within reach.
--- NOTE | 2025-07-05 20:29 | PC.NURSE ---
Shift note ([id number]): Patient discharged from [facility] at?2018 accompanied by . Patient ambulated independently. IV to right A/C was removed. Discharge instructions given to patient and .
== END 2025-07-05 20:18 | disposition home or self-care (01) ==
LOC: ED 19:48 → MEDSURG 20:05
PROVIDERS: Admitting Provider Family Medicine; Emergency Provider Family Medicine; PCP Family Medicine; Visit Provider Family Medicine
DX: I31.2 Hemopericardium, not elsewhere classified (principal); R60.0 Localized edema; I48.91 Unspecified atrial fibrillation; Z95.0 Presence of cardiac pacemaker; Z86.79 Personal history of other diseases of the circulatory system; Z79.01 Long term (current) use of anticoagulants
CPT/HCPCS: 36415; 71046; 71250; 80048; 80076; 80162; 83605; 83690; 83735; 83880; 84484; 85025; 85610; 86140; 87636; 93005; 93306; 94761; 99285; A9270; G0378